=== PATIENT | female | born 1970 | race African-American/Black ===

== ENCOUNTER 2022-05-24 14:38 | Emergency (ER) | payer OTHER ==
[2022-05-24 15:09] VITALS: TEMP 97.9
[2022-05-24] MEDS ORDERED: KETOROLAC 15 MG/ML 1 ML VIAL IVP STA (15:24)
[2022-05-24] MEDS ORDERED: SODIUM CHLORIDE 0.9% 1,000 ML IV STA (15:24)
[2022-05-24] MEDS ORDERED: PROCHLORPERAZINE INJ 10 MG/2 ML VIAL IVP STA (15:24)
[2022-05-24] MEDS ORDERED: diphenhydrAMINE 50 MG/ML 1 ML VIAL IVP STA (15:24)
[2022-05-24 16:03] LABS: African American GFR (CKD) >90 (>60 ml/min/1.73 sqM); Anion Gap 4 mmol/L; Blood Urea Nitrogen 12 mg/dL (7-17); Calcium 9.8 mg/dL (8.4-10.2); Carbon Dioxide 31 mmol/L (22-30); Chloride 104 mmol/L (98-107); Glucose 102 mg/dL (74-99); Non-African American GFR(CKD) >90 (>60 ml/min/1.73 sqM); Potassium 4.3 mmol/L (3.5-5.1); Sodium 139 mmol/L (137-145)
[2022-05-24 16:04] LABS: Basophils # (A) 0.1 k/uL (0-0.2); Basophils % (A) 1 %; Eosinophils # (A) 0.3 k/uL (0-0.7); Eosinophils % (A) 2 %; HCT 35.4 % (34.0-46.0); HGB 11.7 gm/dL (11.4-16.0); Lymphocytes # (A) 3.8 k/uL (1.0-4.8); Lymphocytes % (A) 28 %; MCH 29.4 pg (25.0-35.0); MCHC 33.2 g/dL (31.0-37.0); MCV 88.7 fL (80.0-100.0); Mean Platelet Volume 8.2; Monocytes # (A) 0.7 k/uL (0-1.0); Monocytes % (A) 5 %; Neutrophils # (A) 8.5 k/uL (1.3-7.7); Neutrophils % (A) 63 %; Platelet Count 332 k/uL (150-450); RBC 3.99 m/uL (3.80-5.40); RDW 12.8 % (11.5-15.5); WBC 13.6 k/uL (3.8-10.6)
--- NOTE | 2022-05-24 16:14 | ED ---
General Adult HPI - General Chief complaint: Headache Stated complaint: evaluation Time Seen by Provider: 05/24/22 15:09 Source: patient, RN notes reviewed, old records reviewed Mode of arrival: ambulatory Limitations: no limitations - History of Present Illness Initial comments: Patient is a 51-year-old female with past medical history remarkable for alcohol abuse [facility] who presents emergency Department complaining of congestion, headache, as well as mild cough. She has had upper respiratory symptoms for multiple days. There have been testing her at the facility for Covid and she has been negative up to this moment. She describes her headache as a achy throbbing sensation located mostly over her forehead but also some radiation in the bilateral posterior neck muscles radiating up to the base of her skull. It comes and goes. States it is not the worst headache of her life. Denies any blurry vision. Does endorse nasal congestion as well as a minimally productive cough of clear sputum. Denies any chest pain, abdominal pain, nausea, vomiting, diarrhea. Denies any shortness of breath. No sore throat. No other acute complaints at this time. Is concerned she may have a sinus infection causing her current symptoms. States she did have chest pain earlier this week but this has not recurred. - Related Data Previous Rx's Medication Instructions Recorded Azithromycin [Zithromax] 250 mg PO DAILY 4 Days #4 tab 05/24/22 Allergies Allergy/AdvReac Type Severity Reaction Status Date / Time No Known Allergies Allergy Verified 05/24/22 15:07 Review of Systems ROS Statement: Those systems with pertinent positive or pertinent negative responses have been documented in the HPI. Review of Systems: CONST: Denies fever EYES: Denies blurry vision ENT: Endorses nasal congestion C/V: Denies Chest pain RESP: Denies shortness of breath GI: Denies abdominal pain : Denies dysuria SKIN: Denies rash. MSK: Denies joint pain. NEURO: Endorses headache ROS Other: All systems not noted in ROS Statement are negative. Past Medical History Past Medical History: No Reported History History of Any Multi-Drug Resistant Organisms: None Reported Past Surgical History: No Surgical Hx Reported Past Psychological History: No Psychological Hx Reported Smoking Status: Current every day smoker Past Alcohol Use History: None Reported Past Drug Use History: None Reported General Exam - General Exam Comments Initial Comments: General: Appears in no acute distress. HEAD: Normal with no signs of head trauma. EYES: PERRLA, EOMI, conjunctiva normal, no discharge. ENT: Hearing grossly intact, normal oropharynx. RESPIRATORY: Clear breath sounds bilaterally. No wheezes, rales, or rhonchi. C/V: Regular rate and rhythm. S1 and S2 auscultated, no edema, peripheral pulses 2+ and intact throughout ABD: Abd is soft, nontender, nondistended EXT: Normal range of motion, no obvious deformity SKIN: No rashes or lesions observed on exposed skin. NEURO: Alert and oriented 4. No focal sensory or strength deficits. Limitations: no limitations Course Vital Signs 05/24/22 05/24/22 05/24/22 15:07 15:14 16:25 Temperature 97.9 F 97.9 F Pulse Rate 82 78 Respiratory 16 17 16 Rate Blood Pressure 131/72 128/82 O2 Sat by Pulse 98 100 Oximetry Medical Decision Making - Medical Decision Making Based on the patient's presentation and physical exam, I'm concerned for a upper respiratory infection for the patient's current symptoms causing her headache as well. Vital signs within except for limits. We will obtain basic labs, provide her with a migraine cocktail, as well as test her for Covid, flu. We'll also obtain a chest x-ray and screening EKG. She was in agreement this plan. EKG shows no signs of acute ischemia. Laboratory studies returned and were remarkable for slight leukocytosis of 13.6 which is likely reactive. Covid is negative, flu is negative. Chest x-ray as interpreted by myself reveals no evidence of acute cardio pulmonary process, no infiltrate. After the patient results of her negative workup. Her headache is resolved at this time. She feels improved. I discussed she likely has a viral syndrome. She was in agreement this plan. I did offer her a Z-Alfred which she accepted. She will be given first dose here. Strict return precautions were discussed. I will provide the patient with a prescription for azithromycin. I instructed the patient to follow up with their PCP in the next 1-3 days. I explained that the patient should return to the emergency department if they experience any worsening symptoms. Strict return precautions were discussed with the patient. The patient expressed understanding of these instructions. I answered all questions that the patient had. The patient was discharged home in good condit ion with their prescriptions and follow up information. Patient left before receiving her paper prescription. - Lab Data Result diagrams: 05/24/22 15:40 05/24/22 15:40 Lab Results 05/24/22 05/24/22 05/24/22 Range/Units 15:40 15:40 15:40 WBC 13.6 H (3.8-10.6) k/uL RBC 3.99 (3.80-5.40) m/uL Hgb 11.7 (11.4-16.0) gm/dL Hct 35.4 (34.0-46.0) % MCV 88.7 (80.0-100.0) fL MCH 29.4 (25.0-35.0) pg MCHC 33.2 (31.0-37.0) g/dL RDW 12.8 (11.5-15.5) % Plt Count 332 (150-450) k/uL MPV 8.2 Neutrophils % 63 % Lymphocytes % 28 % Monocytes % 5 % Eosinophils % 2 % Basophils % 1 % Neutrophils # 8.5 H (1.3-7.7) k/uL Lymphocytes # 3.8 (1.0-4.8) k/uL Monocytes # 0.7 (0-1.0) k/uL Eosinophils # 0.3 (0-0.7) k/uL Basophils # 0.1 (0-0.2) k/uL Sodium 139 (137-145) mmol/L Potassium 4.3 (3.5-5.1) mmol/L Chloride 104 (98-107) mmol/L Carbon Dioxide 31 H (22-30) mmol/L Anion Gap 4 mmol/L BUN 12 (7-17) mg/dL Creatinine 0.71 (0.52-1.04) mg/dL Est GFR (CKD-EPI)AfAm >90 (>60 ml/min/1.73 sqM) Est GFR (CKD-EPI)NonAf >90 (>60 ml/min/1.73 sqM) Glucose 102 H (74-99) mg/dL Calcium 9.8 (8.4-10.2) mg/dL Coronavirus (PCR) (Not Detectd) Influenza Type A RNA Not Detected (Not Detectd) Influenza Type B (PCR) Not Detected (Not Detectd) 05/24/22 Range/Units 15:40 WBC (3.8-10.6) k/uL RBC (3.80-5.40) m/uL Hgb (11.4-16.0) gm/dL Hct (34.0-46.0) % MCV (80.0-100.0) fL MCH (25.0-35.0) pg MCHC (31.0-37.0) g/dL RDW (11.5-15.5) % Plt Count (150-450) k/uL MPV Neutrophils % % Lymphocytes % % Monocytes % % Eosinophils % % Basophils % % Neutrophils # (1.3-7.7) k/uL Lymphocytes # (1.0-4.8) k/uL Monocytes # (0-1.0) k/uL Eosinophils # (0-0.7) k/uL Basophils # (0-0.2) k/uL Sodium (137-145) mmol/L Potassium (3.5-5.1) mmol/L Chloride (98-107) mmol/L Carbon Dioxide (22-30) mmol/L Anion Gap mmol/L BUN (7-17) mg/dL Creatinine (0.52-1.04) mg/dL Est GFR (CKD-EPI)AfAm (>60 ml/min/1.73 sqM) Est GFR (CKD-EPI)NonAf (>60 ml/min/1.73 sqM) Glucose (74-99) mg/dL Calcium (8.4-10.2) mg/dL Coronavirus (PCR) Not Detected (Not Detectd) Influenza Type A RNA (Not Detectd) Influenza Type B (PCR) (Not Detectd) - EKG Data -: EKG Interpreted by Me EKG Comments: 12-lead Electrocardiogram Interpretation Note EKG was reviewed and interpreted by myself. 12-lead ECG performed at 1556 is interpreted by me as revealing normal sinus rhythm at a rate of 63 beats per m inute. [place] is normal. ID interval is 157 ms, QRS duration is 82 ms, QTc is 389 ms.. There were no ST or T wave abnormalities to suggest myocardial ischemia or injury. R wave progression across the precordium was satisfactory. By my interpretation this EKG is non-diagnostic for acute ischemia. No prior EKG for comparison. Disposition Clinical Impression: Headache, Bronchitis Disposition: HOME SELF-CARE Condition: Good Instructions (If sedation given, give patient instructions): Acute Bronchitis (ED) Prescriptions: Azithromycin [Zithromax] 250 mg PO DAILY 4 Days #4 tab Is patient prescribed a controlled substance at d/c from ED?: No Referrals: None,Stated [Primary Care Provider] - 1-2 days Time of Disposition: 16:30
--- NOTE | 2022-05-24 16:17 | XR ---
EXAMINATION TYPE: XR chest 2V DATE OF EXAM: 05/24/2022 4:05 PM COMPARISON: None. TECHNIQUE: XR chest 2V . CLINICAL INDICATION:Female, 51 years old with history of cough; FINDINGS: Lungs/Pleura: There is no evidence of pleural effusion, focal consolidation, or pneumothorax. Pulmonary vascularity: Unremarkable. Heart/mediastinum: Cardiomediastinal silhouette is unremarkable. Musculoskeletal: No acute osseous pathology. IMPRESSION: No acute cardiopulmonary disease/process.
[2022-05-24 16:25] VITALS: BP 128/82; PULSE 78; RESP 16
[2022-05-24] MEDS ORDERED: AZITHROMYCIN 500 MG TAB PO STA (16:30)
== END 2022-05-24 17:05 | disposition home or self-care (01) ==
LOC: EC 14:38
DX: R51.9 Headache, unspecified (principal); J40 Bronchitis, not specified as acute or chronic; F17.200 Nicotine dependence, unspecified, uncomplicated; Z20.822 Contact with and (suspected) exposure to COVID-19
CPT/HCPCS: 36415; 93005; 80048; 85025; 87502; 87635; 71046; 99284; 96374; 96375 ×2; 96361; J1200; J0780; J1885